=== PATIENT | male | born 1950 | race Caucasian/White ===

== ENCOUNTER 2018-08-31 23:01 | Inpatient (IN) | payer OTHER ==
[~2018-08-31] VITALS: Ht 182.9 cm; Wt 75.4 kg
[2018-08-31 23:22] LABS: ABSOLUTE NEUTROPHILS 9.5 thou/uL (1.4-8.2); BASOPHILS 0.4 % (0.0-2.0); EOSINOPHILS 0.1 % (0.0-3.0); HEMOGLOBIN 15.1 gm/dL (14.0-18.0); LYMPHOCYTES 29.6 % (24.0-44.0); MCH 32.1 pg (26.0-34.0); MCHC 32.8 g/dL (28.0-37.0); MCV 97.9 fL (80.0-100.0); MONOCYTES 7.9 % (1.0-8.0); PLATELET COUNT 190 thou/uL (150-400); RDW 13.3 % (10.5-14.5); WBC 15.3 thou/uL (4.0-11.0)
[2018-08-31 23:30] LABS: CALCIUM 8.5 mg/dL (8.5-10.1); CREATININE 1.3 mg/dL (0.7-1.3); POTASSIUM 5.2 mmol/L (3.5-5.1)
[2018-08-31 23:39] LABS: TROPONIN-I 0.48 ng/mL (<0.06)
[2018-08-31 23:54] LABS: BE(vivo) -11.2 mmol/L (-2 to +3); HCO3 18.7 mmol/L (22.0-26.0); PCO2 57.5 mmHg (35.0-45.0); PO2 299.4 mmHg (80.0-100.0); sO2 99.5 % (92.0-98.0)
[2018-08-31 23:55] LABS: pH 7.129 (7.360-7.450)
--- NOTE | 2018-08-31 23:56 | NUR ---
CRITICAL VALUE OF LACTIC ACID=8.6
--- NOTE | 2018-08-31 23:57 | NUR ---
PHYSICIAN NOTIFIED OF LACTIC=8.6
[2018-09-01] VITALS (94 sets, daily range): BP systolic 67–173; BP diastolic 39–145
--- NOTE | 2018-09-01 00:31 | NUR ---
attempted to reach patient's brother. message left
--- NOTE | 2018-09-01 01:45 | NUR ---
Pt arrived ICU via cart,accompanied with ER staff/RT to room 240. He is intubated and very restless. Nitro gtt was infusing as high as 100mcg at upon arrival. Stop it for now due to low BP. ST on monitor with some PVCs notes. No family present at this time. Hx obtained from old medical record. Care plans are initiates. Will continue to monitor him closely.
[2018-09-01 02:29] LABS: BE(vivo) -9.4 mmol/L (-2 to +3); HCO3 18.9 mmol/L (22.0-26.0); PCO2 50.4 mmHg (35.0-45.0); PO2 320.1 mmHg (80.0-100.0); sO2 99.6 % (92.0-98.0)
[2018-09-01 02:30] LABS: pH 7.193 (7.360-7.450)
--- NOTE | 2018-09-01 02:50 | NUR ---
CALLED BACK. NO NEW ORDER FOR VENT ADJUSTMENT AT THIS TIME. ORDER TO OBTAIN ABG LATER ON THIS AM.
--- NOTE | 2018-09-01 03:56 | NUR ---
After I placed warm blankets on this pt. I still not able to obtain pedalist pulses. He still able to move his foot and toes with palpations. no changes of color. Call placed to NATALYA Alfaro . no new order at this time.
[2018-09-01 04:57] LABS: BE(vivo) -6.2 mmol/L (-2 to +3); HCO3 20.2 mmol/L (22.0-26.0); PCO2 42.9 mmHg (35.0-45.0); PO2 99.6 mmHg (80.0-100.0); sO2 96.9 % (92.0-98.0)
[2018-09-01 05:23] LABS: HEMATOCRIT 45.6 % (42.0-52.0); HEMOGLOBIN 15.3 gm/dL (14.0-18.0); MCH 31.8 pg (26.0-34.0); MCHC 33.5 g/dL (28.0-37.0); MCV 95.1 fL (80.0-100.0); RBC 4.8 mil/uL (4.50-6.00); RDW 12.9 % (10.5-14.5); WBC 17.9 thou/uL (4.0-11.0)
[2018-09-01 05:41] LABS: CALCIUM 8.3 mg/dL (8.5-10.1); CREATININE 1.4 mg/dL (0.7-1.3)
[2018-09-01 05:49] LABS: POTASSIUM 3.4 mmol/L (3.5-5.1)
[2018-09-01 05:51] LABS: TROPONIN-I 37.18 ng/mL (<0.06)
--- NOTE | 2018-09-01 07:30 | NUR ---
Pt has multiple liquid stool notes. He required more pressor at this time. CXR show no evidence of acute CHF. Call placed to ; see new order.
[2018-09-01 10:35] LABS: ABSOLUTE NEUTROPHILS 18.1 thou/uL (1.4-8.2); BASOPHILS 0.4 % (0.0-2.0); HEMATOCRIT 43.8 % (42.0-52.0); HEMOGLOBIN 14.9 gm/dL (14.0-18.0); LYMPHOCYTES 3.4 % (24.0-44.0); MCHC 33.9 g/dL (28.0-37.0); MCV 94.1 fL (80.0-100.0); MONOCYTES 3.6 % (1.0-8.0); PLATELET COUNT 151 thou/uL (150-400); POLYS 92.6 % (36.0-66.0); RBC 4.65 mil/uL (4.50-6.00); RDW 12.8 % (10.5-14.5); WBC 19.6 thou/uL (4.0-11.0)
[2018-09-01 10:43] LABS: CREATININE 1.6 mg/dL (0.7-1.3); POTASSIUM 3.6 mmol/L (3.5-5.1)
--- NOTE | 2018-09-01 10:45 | 2DMMODE ---
[facility] [place] [address] 2 D/M-MODE ECHOCARDIOGRAM Name: ANGELICA PARIS Room #: 240-P ADM IN ..#: [id number] ������������� Admission: 09/01/18 ������������� Attend Phys: Juan Francisco Herbert MD Discharge: ��� ������������� ��� Date of : 54 Date of Service: 09/01/18 1045 �� Report #: [id number] �������� ��������������������������������������������[id number] THIS REPORT FOR: //name// APPROVED REPORT Study performed: 09/01/2018 09:45:50 EXAM: Comprehensive 2D, Doppler, and color-flow Echocardiogram Patient Location: ICU Room #: 240 Status: routine BSA: 1.92 HR: 116 bpm BP: 98/65 mmHg Rhythm: Tachycardia Other Information Study Quality: Adequate/patient on vent. Indications [place], respiratory arrest. Hx: COPD, HTN, HLP, ETOH abuse. 2D Dimensions RVDd: 34.26 mm IVSd: 11.58 (7-11mm) LVOT Diam: 20.99 (18-24mm) LVDd: 40.11 mm PWd: 10.76 (7-11mm) Ascending Ao: 33.40 (22-36mm) LVDs: 29.77 (25-40mm) Aortic Root: 36.02 mm Volumes Left Atrial Volume (Systole) Single Plane 4CH: 33.60 mL Single Plane 2CH: 35.33 mL LA ESV Index: 20.00 mL/m2 Aortic Valve AoV Peak Jermaine.: 1.41 m/s AO Peak Gr.: 7.96 mmHg LVOT Max P.37 mmHg LVOT Max V: 1.16 m/s ROSAMARIA Vmax: 2.84 cm2 Mitral Valve E/A Ratio: 0.8 MV Decel. Time: 184.88 ms MV E Max Jermaine.: 0.64 m/s [facility] [place] [address] 2 D/M-MODE ECHOCARDIOGRAM Name: ANGELICA PARIS Room #: [facility] IN M.R.#: [id number] ������������� Admission: 09/01/18 ������������� Attend Phys: Juan Francisco Herbert MD Discharge: ��� ������������� ��� Date of : 54 Date of Service: 09/01/18 1045 �� Report #: [id number] �������� ��������������������������������������������[id number] MV A Jermaine.: 0.77 m/s MV PHT: 53.61 ms IVRT: 50.75 ms Pulmonary Valve PV Peak Jermaine.: 0.74 m/s PV Peak Gr.: 2.19 mmHg Pulmonary Vein P Vein S: 0.56 m/s P Vein D: 0.38 m/s P Vein S/D Ratio: 1.47 Tricuspid Valve TR Peak Jermaine.: 3.06 m/s RAP Estimate: 5.00 mmHg TR Peak Gr.: 37.42 mmHg PA Pressure: 42.00 mmHg Left Ventricle The left ventricle is normal size. Regional wall motion abnormalities are noted. There is hypokinesis of the mid to distal anteroseptal and apical levin. Mild basal septal hypertrophy is present. Left ventricular systolic function is moderately decreased. LVEF is 35-40%. Mild diastolic dysfunction is present (impaired relaxation pattern). Right Ventricle The right ventricle is normal size. Atria The left atrium size is normal. The right atrium size is normal. Aortic Valve Aortic valve is trileaflet, mildly thickened. No aortic regurgitation is present. There is no aortic valvular stenosis. Mitral Valve Mitral valve leaflets are mildly thickened. There is no mitral valve regurgitation noted. No evidence of mitral valve stenosis. Tricuspid Valve The tricuspid valve is normal in structure. Mild to moderate tricuspid regurgitation. Estimated PAP is 45mmHg. Pulmonic Valve The pulmonary valve is normal in structure. Trace pulmonic [address] [address] 2 D/M-MODE ECHOCARDIOGRAM Name: ANGELICA PARIS Room #: 240-P [facility] IN ..#: [id number] ������������� Admission: 09/01/18 ������������� Attend Phys: Juan Francisco Herbert MD Discharge: ��� ������������� ��� Date of : 54 Date of Service: 09/01/18 1045 �� Report #: [id number] �������� ��������������������������������������������[id number] regurgitation. Great Vessels The aortic root is normal in size. The ascending aorta is normal in size. IVC is normal in size and collapses >50% with inspiration. Pericardium There is no pericardial effusion. <Conclusion> The left ventricle is normal size. Left ventricular systolic function is moderately decreased. Mild diastolic dysfunction is present (impaired relaxation pattern). The right ventricle is normal size. The left atrium size is normal. The right atrium size is normal. Aortic valve is trileaflet, mildly thickened. There is no mitral valve regurgitation noted. Mild to moderate tricuspid regurgitation. Estimated PAP is 45mmHg. ��������������������������������������������� <ELECTRONICALLY SIGNED> ���������������������������������������� By: Luis Urena MD ��������������������������������������������� 09/01/18 1045 1045 1045 Luis Urena MD /INF
[2018-09-01 10:49] LABS: ALBUMIN 2.9 g/dL (3.4-5.0); TOTAL BILIRUBIN 0.3 mg/dL (<0.1-1.0); TOTAL PROTEIN 6.5 g/dL (6.4-8.2)
[2018-09-01 10:53] LABS: FIBRINOGEN 419.7 mg/dL (210-360); INR 1.1; PROTIME 11.8 Seconds (9.3-11.4)
[2018-09-01 12:03] LABS: BE(vivo) -7.4 mmol/L (-2 to +3); PCO2 41.9 mmHg (35.0-45.0); PO2 114.4 mmHg (80.0-100.0); sO2 97.7 % (92.0-98.0)
--- NOTE | 2018-09-01 12:04 | EKG ---
[place] [address] [facility] [address] [employer] [place] [address] ELECTROCARDIOGRAM REPORT Name: ANGELICA PARIS Room #: 240-P ADM IN M.R.#: [id number] ������������������ Admission: 09/01/18 ������������������ Attend Phys: Juan Francisco Herbert MD Discharge: ������������������ Date of : 54 Report #: [id number] ����������������������������������������������������������������� [id number] THIS REPORT FOR: //name// [facility] ED Test Date: 2018-08-31 Test Time: 23:30:56 Pat Name: ANGELICA PARIS Department: Room: 240 Gender: M Assistant Plant Manager: morris : 1950 Requested By: Robert Torres Order Number: [id number] MD: Luigi Lemos Measurements Intervals [place] Rate: 109 P: 76 WV: 169 QRS: -58 QRSD: 97 T: 95 QT: 321 QTc: 433 Interpretive Statements Sinus tachycardia Biatrial enlargement Left axis deviation Probable lateral infarct, age indeterminate Anterior infarct, possibly acute clinical correlation suggested Baseline wander and artifact noted No previous ECG available for comparison Electronically Signed On 09-01-2018 12:04:17 FINISH MENDER by Luigi Lemos [email or web address] ��������������������������������������������� <ELECTRONICALLY SIGNED> ���������������������������������������� By: Luigi Lemos MD ��������������������������������������������� 09/01/18 1204 233 29 Luigi Lemos MD /EPI
[2018-09-01 12:05] LABS: pH 7.275 (7.360-7.450)
--- NOTE | 2018-09-01 12:10 | EKG ---
[address] [address] ELECTROCARDIOGRAM REPORT Name: GERMAIN PARISRICK Room #: 240-P ADM IN M.R.#: [id number] ������������������ Admission: 09/01/18 ������������������ Attend Phys: Juan Francisco Herbert MD Discharge: ������������������ Date of : 54 Report #: [id number] ����������������������������������������������������������������� [id number] THIS REPORT FOR: //name// [facility] Test Date: 2018-09-01 Test Time: 06:26:46 Pat Name: ANGELICA PARIS Department: Room: 240 P Gender: M Psychological Aide: ALICIA : 1950 Requested By: Carmelo Plunkett Order Number: [id number] MD: Luigi Lemos Measurements Intervals [place] Rate: 103 P: 71 SD: 131 QRS: -70 QRSD: 97 T: 91 QT: 346 QTc: 453 Interpretive Statements Sinus tachycardia Atrial premature complex Right atrial enlargement Left axis deviation Anterolateral infarct, age indeterminate may be recent Baseline wander in lead(s) V5 Electronically Signed On 09-01-2018 12:10:45 SEA KAYAKING GUIDE by uLigi Lemos [email or web address] ��������������������������������������������� <ELECTRONICALLY SIGNED> ���������������������������������������� By: Luigi Lemos MD ��������������������������������������������� 09/01/18 1210 5 5 Luigi Lemos MD /EPI
--- NOTE | 2018-09-01 12:11 | EKG ---
[address] [address] ELECTROCARDIOGRAM REPORT Name: GERMAIN PARISRICK Room #: 240-P ADM IN M.R.#: [id number] ������������������ Admission: 09/01/18 ������������������ Attend Phys: Juan Francisco Herbert MD Discharge: ������������������ Date of : 54 Report #: [id number] ����������������������������������������������������������������� [id number] THIS REPORT FOR: //name// [facility] Test Date: 2018-09-01 Test Time: 06:31:57 Pat Name: ANGELICA PARIS Department: Room: 240 P Gender: M Accounts Collector: ALICIA : 1950 Requested By: Carmelo Plunkett Order Number: [id number] MD: Luigi Lemos Measurements Intervals Lane Rate: 103 P: 73 RI: 129 QRS: -71 QRSD: 97 T: 91 QT: 393 QTc: 515 Interpretive Statements Sinus tachycardia Right atrial enlargement Left axis deviation Anterolateral infarct may be recent or acute correlation suggested Electronically Signed On 09-01-2018 12:11:45 AGRICULTURAL COMMODITIES GRADER by Luigi Lemos [email or web address] ��������������������������������������������� <ELECTRONICALLY SIGNED> ���������������������������������������� By: Luigi Lemos MD ��������������������������������������������� 09/01/18 1211 0631 06 Luigi Lemos MD /JAMAR
[2018-09-01 13:11] LABS: URINE BILIRUBIN NEGATIVE (Negative); URINE BLOOD 1+ (Negative); URINE CLARITY CLEAR; URINE COLOR YELLOW; URINE GLUCOSE-RANDOM* NEGATIVE (Negative); URINE KETONES NEGATIVE (Negative); URINE LEUKOCYTES-REFLEX 1+ (Negative); URINE NITRITE-REFLEX NEGATIVE (Negative); URINE PROTEIN (DIPSTICK) NEGATIVE (Negative); URINE SPECIFIC GRAVITY <= 1.005 (1.005-1.035); URINE UROBILINOGEN 0.2 E.U./dl (0.2-1.0)
[2018-09-01 13:19] LABS: BACTERIA-REFLEX None Seen /HPF (None Seen); CASTS None Seen /LPF (None Seen); CRYSTALS None Seen /LPF (None Seen); MUCUS 4-6 Moderate strn/LPF (None Seen); SQUAMOUS None Seen /LPF (0-3); URINE RBC 3-10 Few /HPF (0-2); URINE WBC-REFLEX 0-5 Rare /HPF (0-5)
[2018-09-01] MEDS ORDERED: LIPITOR 10 MG10 M1 PO (13:33)
[2018-09-01] MEDS ORDERED: CYMBALTA60 MG PO (13:34)
[2018-09-01] MEDS ORDERED: LOPRESSOR25 PO (13:34)
[2018-09-01] MEDS ORDERED: CLARITIN10 MG PO (13:34)
[2018-09-01] MEDS ORDERED: LISINOPRIL10 MG PO (13:34)
[2018-09-01] MEDS ORDERED: NORCO 7.5-3251 EACH PO (13:35)
[2018-09-01] MEDS ORDERED: MELATONIN3 MG PO (13:37)
[2018-09-01] MEDS ORDERED: IPRAT-ALBUT 0.5-3 ML INH (13:38)
[2018-09-01] MEDS ORDERED: COLACE 100 MG100 MG PO (13:39)
[2018-09-01] MEDS ORDERED: [UNRECOGNIZED DRUG - OTHER] TOP (13:39)
[2018-09-01] MEDS ORDERED: NITROGLYCERIN0.4 MG SUBLING (13:40)
[2018-09-01] MEDS ORDERED: VENTOLIN HFA 1818 GM INH (13:40)
--- NOTE | 2018-09-01 15:47 | NUR ---
NURSING NOTE---- SPOKE WITH PATIENT BROTHER JAMEY VIA TELEPHONE, REPORTS THAT PTS BASELINE IS ALERT TO SELF, WHEELCHAIR BOUND, SEVERE DEMENTIA WHOM IS VERBALLY AND PHYSICALLY AGGRESSIVE AND WILL HIT ANYONE WITHIN ARMS REACH. UPDATED BROTHER ABOUT PT STATUS, BROTHER DOES NOT WANT PT TO BE CARDIAC CATHED, WISHES TO HAVE HIM REMAIN DNR STATUS. REPORTS THAT PT [facility] 3 YEARS DUE TO A PAST CVA WHICH LEFT HIM WHEELCHAIR BOUND. UPDATED ROUNDING PHYSICIANS REGARDING BROTHERS WISHES (MILKA COSTELLO, GERARDO) TRANG WAS GOING TO TOUCH BASE WITH BROTHER TODAY AND UPDATE HIM ON PT PROGNOSIS.
--- NOTE | 2018-09-01 17:01 | NUR ---
CM ASSESSMENT: CASE OPENED FOR DC PLANNING. CLINICAL INFO REVIEWED. PT LIVES IN LTC AT [facility]. NEED ADL ASSIST AND WALKS WITH WALKER AND BEHIND W/C SOME. HX OF DEMENTIA WITH AGGRESSIVE BEHAVIORS. ON VENT FIO2 DOWN FORM 80 % TO 40 % AND ON 10 OF PEEP, LEVOPHED GTT. PT'S BROTHER JAMEY IS DPOA AND AWARE OF ADMISSION. PT IS DNR. ADMISSIONS AT [facility] UPDATED.
[2018-09-01 17:14] LABS: CALCIUM 6.2 mg/dL (8.5-10.1); CREATININE 1.4 mg/dL (0.7-1.3); POTASSIUM 3.4 mmol/L (3.5-5.1)
--- NOTE | 2018-09-01 18:03 | NUR ---
SPOKE WITH DR JARQUIN REGARDING PT CVP 4-6, ORDERS FOR 1/2 NS @ 125ML/HR, ALSO REPORTED FLUID INTAKE AND OUTPUT. SEE CHARTING.
[2018-09-02] VITALS (95 sets, daily range): BP systolic 77–159; BP diastolic 47–94
[2018-09-02 04:35] LABS: ABSOLUTE NEUTROPHILS 14.6 thou/uL (1.4-8.2); BASOPHILS 0.2 % (0.0-2.0); HEMATOCRIT 40.3 % (42.0-52.0); LYMPHOCYTES 3.8 % (24.0-44.0); MCH 30.8 pg (26.0-34.0); MCHC 32.2 g/dL (28.0-37.0); MCV 95.6 fL (80.0-100.0); MONOCYTES 4.3 % (1.0-8.0); PLATELET COUNT 142 thou/uL (150-400); POLYS 91.7 % (36.0-66.0); RBC 4.22 mil/uL (4.50-6.00); RDW 13.4 % (10.5-14.5)
[2018-09-02 05:02] LABS: CALCIUM 7.9 mg/dL (8.5-10.1); CREATININE 1.4 mg/dL (0.7-1.3); POTASSIUM 4.1 mmol/L (3.5-5.1)
[2018-09-02 05:06] LABS: TROPONIN-I 8.58 ng/mL (<0.06)
[2018-09-02 05:08] LABS: BE(vivo) -9.6 mmol/L (-2 to +3); HCO3 17.6 mmol/L (22.0-26.0); PCO2 42.8 mmHg (35.0-45.0); sO2 98.2 % (92.0-98.0)
[2018-09-02 05:09] LABS: pH 7.231 (7.360-7.450)
--- NOTE | 2018-09-02 06:00 | NUR ---
Pt remains stable in this shift. Continue to be on vent with low dose of Propofol and Fentanyl gtt for vent management. He has short run of SVT tonight but back to NSR/ST w/o any intervention. VSS. All lines remains inplaced. Slowly progressing toward goals.
[2018-09-02 14:05] LABS: HCO3 18.3 mmol/L (22.0-26.0); PCO2 36.1 mmHg (35.0-45.0); PO2 135.4 mmHg (80.0-100.0); pH 7.322 (7.360-7.450); sO2 98.5 % (92.0-98.0)
[2018-09-02 15:20] LABS: CALCIUM 8.1 mg/dL (8.5-10.1); CREATININE 1.4 mg/dL (0.7-1.3); POTASSIUM 4.1 mmol/L (3.5-5.1)
--- NOTE | 2018-09-02 18:35 | HC ---
[facility] [place] [address] CONSULTATION Name: ANGELICA PARIS Room #: 240-P ADM IN M.R.#: [id number] Admission: 09/01/18 ������������������ Attend Phys: Juan Francisco Herbert MD Discharge: ������������������ Date of : 54 Report #: [id number] THIS REPORT FOR: //name// CC: Usman Herbert DATE OF SERVICE: 09/01/2018 REFERRAL PHYSICIAN: Dr. Carrasquillo. REASON FOR REFERRAL: Acute respiratory failure. HISTORY OF PRESENT ILLNESS: The patient is a 68-year-old white male who was brought to the Emergency Room from a shelter. He was found in respiratory distress and eventually intubated. A pulmonary consultation was requested. This is patient's first admission to this hospital. Medical history is limited. There is a DPOA, a brother who is not present. EMS was called to the shelter and patient was found to be in respiratory distress. Onset of the symptoms was unknown. When he was taken to the ER, he was found to be in more distress, hypoxic. The patient was subsequently intubated when he arrived in the ER. He was intubated with a 7.5 mm ET tube orally. Following intubation, the EMS had brought paperwork. It appeared that patient was a DNR. According to records, attempts were made to call the patient's brother, who is the next of kin. They were unsuccessful. Initial EKG as read by the ED physician was felt to be unremarkable except for T-wave inversion. After review with Cardiology, there were ST elevation noted on the first EKG. Admitting chest x-ray shows mild interstitial infiltrates seen in the right lower lung field. ET tube is in appropriate position above the sri. The patient was then transferred to the ICU. He was placed on nitro drip. When he arrived in ICU, he was hypotensive. Nitro drip was discontinued. Levophed was initiated. At present, patient is sedated, unresponsive. PAST MEDICAL HISTORY: Per records is notable for dementia, COPD, hypertension, gastroesophageal reflux disease along with history of alcohol dependence. PAST SURGICAL HISTORY: Unknown. [facility] [address] [place] [address] CONSULTATION Name: ANGELICA PARIS Room #: 240-P ADM IN .R.#: [id number] Admission: 09/01/18 ������������������ Attend Phys: Juan Francisco Herbert MD Discharge: ������������������ Date of : [birth year] Report #: [id number] ALLERGIES: No known to medications according to records. HOME MEDICATIONS: Unknown at this time. FAMILY HISTORY AND SOCIAL HISTORY: Unknown other than patient resides in a shelter. He does have a brother who lives in town, who is apparently the DPOA, being next of kin. REVIEW OF SYSTEMS: Deferred as the patient is intubated. PHYSICAL EXAMINATION: GENERAL: He is sedated. VITAL SIGNS: Temperature is 99.9 degrees Fahrenheit, respiratory rate is 22, blood pressure is 100/65 mmHg, saturation 100%, pulse is 100 beats per minute. Blood pressure had been as low as 68 mmHg systolic. HEENT: Normocephalic, atraumatic. He is orally intubated. NECK: Supple, without lymphadenopathy or thyromegaly. CHEST: Breath sounds are fair. Mild coarse breath sounds in the bases, more on the right base. No obvious wheezes. CARDIOVASCULAR: Normal S1, S2. No murmurs or gallop. There is no JVD. There is no carotid bruit. Pulses are 2+/4+ bilaterally. ABDOMEN: Soft, nontender. No organomegaly or masses felt. GENITOURINARY: Deferred. RECTAL: Deferred. EXTREMITIES: No cyanosis or clubbing. Mild cyanosis seen in the foot. Otherwise, no clubbing, no edema. NEUROLOGIC: Deferred as the patient is sedated at this time. LABORATORY DATA: Chest x-ray shows volume loss in the left lung field with atelectasis, pleural thickening. Mild infiltrates as seen in the right upper lobe, right lower lobe. Chronic changes are also noted including probable bronchiectasis involving the right lower lobe. ET tube is approximately 2.5 cm above the sri. A skin fold sign is noted in the right upper lobe. Lactic acid is 8.6. BNP is 1500. Procalcitonin level is 41. 2D echocardiogram shows normal LV size, LV function is moderately decreased, right ventricle is normal size, no valvular abnormalities. Pulmonary pressure is 45. Sodium 137, potassium 5.2, chloride 98, CO2 is 24, BUN is 17, creatinine is 1.3. Liver enzymes are elevated. WBC is 19,600 without significant bandemia. Albumin 2.9. Initial arterial blood gas revealed pH 7.12, pCO2 57, pO2 299 on FiO2 100%. IMPRESSION: 1. Acute hypercapnic-hypoxic respiratory failure in this 68-year-old white male. He has a history of chronic obstructive pulmonary disease, dementia and alcohol dependence. His procalcitonin is markedly elevated. He has leukocytosis. His troponin is also markedly elevated with an abnormal EKG. [facility] [address] [place] [address] CONSULTATION Name: ANGELICA PARIS Room #: 240-P [facility] IN M.R.#: [id number] Admission: 09/01/18 ������������������ Attend Phys: Juan Francisco Herbert MD Discharge: ������������������ Date of : 54 Report #: [id number] Etiology probably related to exacerbation of chronic obstructive pulmonary disease, pneumonia. Severe sepsis is present. 2. Abnormal EKG with ST elevation, markedly elevated troponin, suspect acute myocardial ischemia. 3. Acute hypercapnic-hypoxic respiratory failure due to above. 4. Chronic obstructive pulmonary disease, severity unknown with exacerbation. 5. Renal insufficiency, likely acute kidney injury due to severe sepsis, hypotension leading to acute tubular necrosis. 6. Probable shock liver. 7. Acidosis, mixed respiratory and metabolic, with lactic acidosis. 8. History of vascular dementia. 9. Depression. 10. Hypotension. 11. History of alcohol dependence. May need to address possible withdrawal symptoms. 12. Gastroesophageal reflux disease. 13. Medical directive. Apparently, the patient had a DNR status. Unfortunately, this information was not known until after the patient was intubated. The patient's brother had been contacted. For now, we will continue treatment, but no CPR or cardioversion. RECOMMENDATIONS: Would recommend initiating sepsis protocol, continue mechanical ventilation, wean O2 for saturation 90%. We will need to monitor urine output closely given acute kidney injury along with following electrolytes closely. Acidosis has corrected partially with adequate ventilation. May need bicarbonate if metabolic acidosis continues. We will defer management of his acute myocardial ischemia to Cardiology. DVT and GI prophylaxis is recommended. Nutritional support once the patient is more stable. Thank you for this consultation. ��������������������������������������������� <ELECTRONICALLY SIGNED> ���������������������������������������� By: Carmelo Plunkett MD ��������������������������������������������� 09/02/18 1835 1139 6 Carmelo Plunkett MD /issa
--- NOTE | 2018-09-02 19:14 | NUR ---
ASSUMED CARE OF PT. AT 0700. SEDATED AND INTUBATED, CAN OCCANSIONALLY FOLLOW VOICE COMMANDS TO SQUEEZE NURSE HANDS. PROPOFOL TITRATED FROM 10-15, LEVOPHED TITRATED FROM 5-3, SODIUM BICARBONATE STARTED AT 50 ML/HR, JEVITY 1.5 STARTED AT 20 ML/HR, FENTANYL STILL RUNNING AT 50. PT. REMAINS NSR AND NO EDEMA. BREATH SOUNDS CLEAR TO AUSCULTATION, VENTILATION SETTINGS CHANGED TO PEEP 8. URINARY OUTPUT REMAINS WITHIN NORMAL LIMITS. AWAITING TO HEAR FROM BROTHER FOR FUTURE PLAN OF CARE. WILL CONTINUE TO MONITOR.
[2018-09-03] VITALS (52 sets, daily range): BP systolic 87–172; BP diastolic 49–96
[2018-09-03 05:16] LABS: ABSOLUTE NEUTROPHILS 13.6 thou/uL (1.4-8.2); BASOPHILS 0.3 % (0.0-2.0); HEMATOCRIT 36.6 % (42.0-52.0); HEMOGLOBIN 12.4 gm/dL (14.0-18.0); LYMPHOCYTES 3.8 % (24.0-44.0); MCH 31.8 pg (26.0-34.0); MCHC 33.9 g/dL (28.0-37.0); MCV 93.7 fL (80.0-100.0); PLATELET COUNT 128 thou/uL (150-400); POLYS 89.9 % (36.0-66.0); RDW 13.2 % (10.5-14.5); WBC 15.1 thou/uL (4.0-11.0)
[2018-09-03 05:17] LABS: PCO2 42.5 mmHg (35.0-45.0); PO2 104.3 mmHg (80.0-100.0); pH 7.312 (7.360-7.450); sO2 97.3 % (92.0-98.0)
[2018-09-03 05:19] LABS: CALCIUM 8.1 mg/dL (8.5-10.1); CREATININE 1.2 mg/dL (0.7-1.3); POTASSIUM 3.7 mmol/L (3.5-5.1)
--- NOTE | 2018-09-03 08:32 | NUR ---
ASSUMED CARE OF PT AT 0100, PT ON THE VENT,LIGHTLY SEDATED ON PROPOFOL AND FENTANYL. TURNED LEVOPHED OFF AT 0520 WHEN PT HAD A SUDDEN ONSET OF AFIB AND HIGH BLOOD PRESSURE, HEART WAS RAPID 170'S TO 200'S AND SYSTOLIC BP IN THE 170'S AMIODARONE BOLUS AND DRIP WAS INATIATED PER DR GAGNON' ORDERS, HR AND BP SLOWLY STARTED TRENDING DOWN. PT OPENS EYES TO STIMULI, AND MOVES HIS HANDS, DOES NOT FOLLOW COMMANDS. TUBE FEEDING INFUSING AT 20ML, RESIDUAL 50CC THIS MORNING, RECTAL TUBE IN PLACE, SMALL AMOUNTS OF LIQUID STOOL, ALARCON WITH CLOUDY URINE WITH SEDIMENT, 500ML OVERNIGHT.
[2018-09-03 11:01] LABS: CALCIUM 8.5 mg/dL (8.5-10.1); CREATININE 1.2 mg/dL (0.7-1.3); POTASSIUM 3.7 mmol/L (3.5-5.1)
--- NOTE | 2018-09-03 18:14 | NUR ---
SHIFT SUMMARY: STABLE ON THE VENT LIGHTLY SEDATED. ON AMIO GTTPER PROTOCOL. VITALS STABLE. NO WEANING AT THIS TIME. FUBEFEEDING PER OGT AND RATE INCREASED EARLIER TODAY, HOWEVER, NOT AT GOAL YET. ALARCON WITH ADEQUATE OUTPUT. FMS WITH LIQUID STOOL. NO FAMILY AT THE BEDSIDE OR PHONE CALLS. WILL CONTINUE WITH POC.
[2018-09-04] VITALS (48 sets, daily range): BP systolic 95–226; BP diastolic 54–142
[2018-09-04 04:24] LABS: HEMATOCRIT 33.9 % (42.0-52.0); HEMOGLOBIN 11.6 gm/dL (14.0-18.0); MCH 32.4 pg (26.0-34.0); MCHC 34.2 g/dL (28.0-37.0); MCV 94.5 fL (80.0-100.0); RBC 3.58 mil/uL (4.50-6.00); RDW 13.3 % (10.5-14.5)
[2018-09-04 04:45] LABS: CALCIUM 8.3 mg/dL (8.5-10.1); CREATININE 1.1 mg/dL (0.7-1.3); POTASSIUM 3.9 mmol/L (3.5-5.1)
[2018-09-04 05:33] LABS: BE(vivo) -2.7 mmol/L (-2 to +3); HCO3 22.4 mmol/L (22.0-26.0); PCO2 39.8 mmHg (35.0-45.0); PO2 83.5 mmHg (80.0-100.0); pH 7.368 (7.360-7.450)
--- NOTE | 2018-09-04 08:17 | HC ---
[facility] [address] CONSULTATION Name: ANGELICA PARIS Room #: 240-P ADM IN M.R.#: [id number] Admission: 09/01/18 ������������������ Attend Phys: Juan Francisco Herbert MD Discharge: ������������������ Date of : 54 Report #: [id number] THIS REPORT FOR: //name// CC: Usman Herbert DATE OF SERVICE: 09/01/2018 INDICATION: Positive troponin. HISTORY OF PRESENT ILLNESS: This is a 68-year-old gentleman who was transferred from [facility] for rehabilitation for respiratory distress. He is presently intubated and has a history of dementia. Information is obtained from the records from his institution and a brother. He has a history of COPD, hypertension, advanced dementia, hyperlipidemia and depression. He apparently was found to be in respiratory distress, unsure of the onset. He was brought to the hospital with no improvement with breathing treatments and CPAP. He was intubated in the ER. After he was intubated, information was obtained including a DNR status. This was verified by his brother. PAST MEDICAL HISTORY: Hypertension, COPD, dementia, hyperlipidemia. ALLERGIES: None. MEDICATIONS: Include Lipitor 10 mg, Cymbalta, lisinopril 10 mg, metoprolol 25, and [place]. SOCIAL HISTORY: Unobtainable. FAMILY HISTORY: Unobtainable. REVIEW OF SYSTEMS: Unobtainable. PHYSICAL EXAMINATION: VITAL SIGNS: Blood pressure is 102/60, heart rate is 80 beats. GENERAL: The patient is intubated, unresponsive. HEENT: Normocephalic, atraumatic. NECK: No JVD. LUNGS: Diminished breath sounds at the bases. CARDIAC: Regular rate and rhythm, S1, S2 positive. ABDOMEN: Soft, nontender. EXTREMITIES: No cyanosis, no edema. ECG reveals sinus rhythm, Q waves in V2 with ST elevation, anteroseptal ID, left axis deviation. [facility] [address] [place] [address] CONSULTATION Name: ANGELICA PARIS Room #: 240-P [facility] IN [facility].#: [id number] Admission: 09/01/18 ������������������ Attend Phys: Juan Francisco Herbert MD Discharge: ������������������ Date of : 54 Report #: [id number] LABORATORY VALUES: Peak troponin is 37.8, white count is 15.3, hemoglobin 15.1, creatinine is 1.4. ASSESSMENT AND PLAN: 1. Respiratory failure, the etiology is multifactorial, chest x-ray shows infiltrate consistent with pneumonia. Would rule out aspiration pneumonia. He is presently hypotensive, may be due to septic shock. Panculture and start antibiotics. 2. Myocardial infarction, unclear the onset, may be related to oxygen mismatch. Given his comorbid conditions and DNR status, would pursue a strategy of conservative therapy. Can give aspirin and atorvastatin through the NG tube. No other cardiac medications in view of hypotension. 3. Hypotension, presently on Levophed for hemodynamic support. We will obtain an echocardiogram at this time. As above, consider ruling an infectious process. 4. Hypertension, hold medications. 5. Dementia, DNR status. ��������������������������������������������� <ELECTRONICALLY SIGNED> ���������������������������������������� By: Luis Urena MD ��������������������������������������������� 09/04/18 0817 0919 [id number] Luis Urena MD /nt
[2018-09-04 10:02] LABS: BE(vivo) -2.5 mmol/L (-2 to +3); HCO3 22.4 mmol/L (22.0-26.0); PCO2 39.5 mmHg (35.0-45.0); PO2 81.8 mmHg (80.0-100.0); pH 7.372 (7.360-7.450); sO2 95.8 % (92.0-98.0)
[2018-09-05] VITALS (48 sets, daily range): BP systolic 76–180; BP diastolic 43–97
[2018-09-05 04:33] LABS: HEMATOCRIT 34.2 % (42.0-52.0); HEMOGLOBIN 11.5 gm/dL (14.0-18.0); MCH 31.7 pg (26.0-34.0); MCHC 33.6 g/dL (28.0-37.0); MCV 94.2 fL (80.0-100.0); RBC 3.63 mil/uL (4.50-6.00); RDW 13.5 % (10.5-14.5)
[2018-09-05 04:48] LABS: CREATININE 1.2 mg/dL (0.7-1.3); POTASSIUM 3.1 mmol/L (3.5-5.1)
--- NOTE | 2018-09-05 06:41 | NUR ---
Vented with no change in vent setting. Less frequent spontaneous eye opening upon painful stimuli than that during previous overnight stocker. Not following commands as during previous overnight stocker. On light sedation. VSS. No apparent distress noted. In restraints. Fall precautions maintained.
--- NOTE | 2018-09-05 13:25 | NUR ---
recommend new tube feeding goal of 60ml/hr.
--- NOTE | 2018-09-05 16:35 | NUR ---
0830 VENT UPDATE-- UNABLE TO CPAP TRIAL PT THIS MORNING, INCREASED HEART RATE, INCREASED B/P AND INCREASED WORK OF BREATHING. SONDRA AT BEDSIDE, ORDERS TO SWITCH SEDATION TO PRECIDEX. 1030 PRECIDEX GTT INCLUDING BOLUS STARTED, PROPOFOL OFF. 1200 PT APPEARS TO BE MORE COMFORTABLE ON PRECIDEX, VITAL SIGNS STABLE, WILL MONITOR CLOSELY.
[2018-09-06] VITALS (31 sets, daily range): BP systolic 132–165; BP diastolic 77–95
--- NOTE | 2018-09-06 03:17 | NUR ---
RECEIVED PATIENT ON PRECEDEX DRIP, OPEN EYES TO SITMULI, DOES NOT OBEYS COMMAND, PUPILS 2 MM SLUGGISHLY REACTIVE TO LIGHT, BILATERAL SOFT RESTRAINTS ON. SR ON THE MONITOR. PULSES 2+/1+. NON PITTING EDEMA ON BILATERAL HANDS, BILATERAL HANDS PLACED 0N TOP OF A PILLOW. ET 7.5 AT LEVEL 27 AT THE TEETH, ON AC MODE WITH RATE OF 18, TV 450, PEEP 5, FIO2 40%. LUNG SOUNDS CLEAR, SUCTIONED PER ET AND OREM, OBTAINED MINIMAL WHITISH SECRETIONS. OGT LEVEL 65 WITH ONGOING JEVITY 1.5 AT 50 ML/HOUR BUT 150 ML RESIDUAL AT 8 PM, HELD TUBE FEED AND WAS RESTARTED AT 25 ML/HOUR AT 12 MN (RESIDUAL 30 ML AT 12MN). ALARCON CATHETER DRAINING TO A YELLOWISH URINE OUTPUT. RECTAL TUBE INTACT AND IRRIGATED WITH 50 ML. SKIN INTACT. RIGHT IJ TRIPLE LUMEN WITH ONGOING PRECEDEX DRIP AT 1 mcg/kg/hr (20.3 ml/hour). TURNING Q 2 HOURS DONE, ORAL CARE DONE, ALARCON CATHETER CARE DONE. MAINTAINED ON HIGH FALL RISK PRECAUTION. BILATERAL SOFT RESTRAINT ON. FF UP POC.
[2018-09-06 03:23] LABS: CALCIUM 8.3 mg/dL (8.5-10.1); CREATININE 1.1 mg/dL (0.7-1.3); POTASSIUM 3.8 mmol/L (3.5-5.1)
[2018-09-06 04:30] LABS: HEMATOCRIT 36.9 % (42.0-52.0); HEMOGLOBIN 12.2 gm/dL (14.0-18.0); MCH 31.4 pg (26.0-34.0); MCHC 33.1 g/dL (28.0-37.0); RBC 3.88 mil/uL (4.50-6.00); RDW 13.2 % (10.5-14.5); WBC 8.6 thou/uL (4.0-11.0)
--- NOTE | 2018-09-06 17:14 | NUR ---
ASSUMED CARE OF PT AT 0700 THIS SHIFT. PT HAS BEEN SEDATED WITH PRECEDEX THIS SHIFT, PT DOES REACT TO HIS NAME SOMEWHAT, BUT DOES NOT FOLLOW COMMANDS. PT SEEMS AGITATED AT TIMES, OVERBREATHING THE VENT IN THE 30s, NO C-PAP THIS SHIFT. PT'S DEPRESSION MEDS WERE RESTARTED. PT CURRENTLY SEEMS TO BE RESTING COMFORTABLY IN ROOM. ASSESSMENTS ARE DOCUMENTED. PT HAS NOT HAD VISITORS THIS SHIFT, EDUCATION WAS PROVIDED. PLAN OF CARE IS TO CONTINUE TO MONITOR CLOSELY AT THIS TIME.
[2018-09-07] VITALS (24 sets, daily range): BP systolic 120–154; BP diastolic 56–89
--- NOTE | 2018-09-07 06:17 | NUR ---
No significant changes observed through the night. PRN ativan given for breakthrough restlessness with desired effect achieved. VS stable and SpO2 adequate on current vent settings. Continues to have large amount of TF residuals and TF infusing at low rate. Large amount of urine output for shift. Continue with POC.
[2018-09-07 12:10] LABS: URINE BILIRUBIN NEGATIVE (Negative); URINE BLOOD NEGATIVE (Negative); URINE CLARITY CLEAR; URINE COLOR YELLOW; URINE GLUCOSE-RANDOM* NEGATIVE (Negative); URINE KETONES NEGATIVE (Negative); URINE LEUKOCYTES-REFLEX NEGATIVE (Negative); URINE NITRITE-REFLEX NEGATIVE (Negative); URINE PROTEIN (DIPSTICK) 1+ (Negative); URINE UROBILINOGEN 0.2 E.U./dl (0.2-1.0)
[2018-09-07 12:29] LABS: BACTERIA-REFLEX 1-9 Few /HPF (None Seen); CASTS None Seen /LPF (None Seen); CRYSTALS None Seen /LPF (None Seen); SQUAMOUS None Seen /LPF (0-3); URINE RBC None Seen /HPF (0-2); URINE WBC-REFLEX 0-5 Rare /HPF (0-5)
[2018-09-07 12:34] LABS: BE(vivo) 6.5 mmol/L (-2 to +3); HCO3 29.9 mmol/L (22.0-26.0); PCO2 38.5 mmHg (35.0-45.0); PO2 100.9 mmHg (80.0-100.0); pH 7.508 (7.360-7.450); sO2 98.1 % (92.0-98.0)
[2018-09-07 13:24] LABS: HEMATOCRIT 35.9 % (42.0-52.0); HEMOGLOBIN 12.1 gm/dL (14.0-18.0); MCH 31.7 pg (26.0-34.0); MCHC 33.8 g/dL (28.0-37.0); MCV 93.7 fL (80.0-100.0); RBC 3.83 mil/uL (4.50-6.00); RDW 12.8 % (10.5-14.5); WBC 9.1 thou/uL (4.0-11.0)
[2018-09-07 13:30] LABS: CREATININE 1.1 mg/dL (0.7-1.3); MAGNESIUM 2.2 mg/dL (1.8-2.4); POTASSIUM 3.1 mmol/L (3.5-5.1)
--- NOTE | 2018-09-07 16:10 | NUR ---
ASSUMED CARE OF PT AT 0700 THIS SHIFT. PT HAS BEEN EXTUBATED THIS SHIFT, HOWEVER PT STILL DOES NOT FOLLOW COMMANDS, AT TIMES BECOMING AGITATED. PT IS STILL ON PRECEDEX FOR AGITATION, NO APPARENT PAIN. PT IS CURRENTLY RESTING COMFORTABLY IN ROOM. ASSESSMENTS ARE DOCUMENTED. PT HAS NOT HAD VISITORS THIS SHIFT, EDUCATION WAS PROVIDED. PLAN OF CARE IS TO CONTINUE TO MONITOR PT CLOSELY AT THIS TIME.
--- NOTE | 2018-09-07 16:38 | NUR ---
FOLLOWING FOR DC PLANNING. PT EXTUBATED TODAY, REMAINS SOMULENT. LIVES IN LTC FACILITY AND ADMISSIONS DEPT UPDATED. PT IS DNR. WILL FOLLOW TO ASSIST WITH COORDINATION OF DC PLAN.
[2018-09-08] VITALS (20 sets, daily range): BP systolic 93–142; BP diastolic 46–77
--- NOTE | 2018-09-08 03:26 | NUR ---
PT EXTUBATED YESTERDAY AFTERNOON. PT'S O2 SAT IS CURRENTLY 97% WITH 3L O2 PER NC. PT SEEMS TO HAVE SECRETIONS THAT NEED TO BE EXPELLED, BUT PT HAS A POOR COUGH AND IS UNABLE TO EXPELL MANY SECRETIONS. PT IS ON PRECEDEX GTT, AT A LOW RATE. PT HAS BEEN CALM AND AROUSABLE. PT FOLLOWS SOME SIMPLE COMMANDS; EXTREMITIES ARE VERY WEAK. OG TUBE WAS LEFT IN FOLLOWING EXTUBATION. THIS MIGHT NEED TO BE CHANGED TO A NG/DOBHOFF, IT IS LIKELY THAT THE OG TUBE WILL NOT MAINTAIN PROPER PLACEMENT NOW THAT THE PT IS EXTUBATED. WILL CONTINUE TO MONITOR.
[2018-09-08 06:05] LABS: HEMATOCRIT 34.6 % (42.0-52.0); HEMOGLOBIN 11.9 gm/dL (14.0-18.0); MCHC 34.3 g/dL (28.0-37.0); MCV 93.4 fL (80.0-100.0); RBC 3.71 mil/uL (4.50-6.00); RDW 12.9 % (10.5-14.5); WBC 10.9 thou/uL (4.0-11.0)
[2018-09-08 06:28] LABS: CALCIUM 7.9 mg/dL (8.5-10.1); POTASSIUM 3.3 mmol/L (3.5-5.1); TOTAL BILIRUBIN 0.7 mg/dL (<0.1-1.0); TOTAL PROTEIN 5.2 g/dL (6.4-8.2)
--- NOTE | 2018-09-08 09:18 | NUR ---
If tube feeds will restart, recommend dobhoff and change formula to Vital HN 1.2 goal of 60ml/hr.
--- NOTE | 2018-09-08 13:27 | NUR ---
FAXED CLINICAL UPDATE TO [facility] SPOKE WITH NICK IN ADM. SHE RECEIVED UPDATE AND NOTIFIED HER THAT NO WEEKEND DC. DCP TO FOLLOW.
--- NOTE | 2018-09-08 16:13 | NUR ---
1000 SPOKE WITH BROTHER JAMEY REGARDING ARTERIAL RUN-OFF, CONSENT OBTAINED. PT REMAINS AND CALM ON PRECEDEX, EARLENE CONSULTED FOR PSYCH STABIZATION, VITAL SIGNS STABLE, NO FEVERS. OPENS EYES TO VOICE AND WHISPERED HIS NAME (PAT). 1400 PT OFF UNIT FOR ARTERIAL RUN-OFF, PRECEDEX GTT SENT WITH IR STAFF.
--- NOTE | 2018-09-08 16:35 | HC ---
[facility] [place] [address] CONSULTATION Name: ANGELICA PARIS Room #: 240-P [facility] IN M.R.#: [id number] Admission: 09/01/18 ������������������ Attend Phys: Juan Francisco Herbert MD Discharge: ������������������ Date of : 54 Report #: [id number] THIS REPORT FOR: //name// CC: Usman Herbert DATE OF SERVICE: 09/07/2018 TYPE OF REPORT: Infectious diseases consultation. REASON FOR CONSULTATION: I was asked to evaluate concerning fever. HISTORY OF PRESENT ILLNESS: The patient is a 68-year-old [facility] resident with underlying history of dementia, hypertension and COPD; who presents with respiratory failure and pneumonia. No organisms have been identified. He was intubated the day of admission, 09/01/2018. He was extubated today. Today, he did develop a temperature of 102.6 degrees. Hemodynamically, he has been stable. He remains on oxygen per nasal cannula. He has a right IJ catheter in place. He has loose stools today now has a rectal tube in place. He has an indwelling Christy catheter with adequate urine output. He has an OG tube in place. Has not tolerated tube feedings at this point in time. He is also found to have lower extremity ischemia. Initially had evidence of cardiac ischemia and atrial fibrillation with rapid ventricular response. REVIEW OF SYSTEMS: The patient was unable to give any details for review of systems. Did discuss with nursing at the bedside. No further additions for 10-point review of systems. ALLERGIES: None known. MEDICATIONS: As noted on his MAR including vancomycin and Zosyn since his admission. FAMILY HISTORY: Noncontributory. SOCIAL HISTORY: Otherwise, not known. PAST MEDICAL HISTORY: Dementia, COPD, hypertension, gastroesophageal reflux and alcohol dependence. PHYSICAL EXAMINATION: VITAL SIGNS: He is afebrile and hemodynamically stable. GENERAL: He was awake but not communicative. HEENT: Eyes, without scleral icterus. Mouth with OG tube in place. No mucositis. He had dry mucous membranes. SKIN: Without rash or decubitus. No palpable adenopathy. [facility] [address] [place] [address] CONSULTATION Name: ANGELICA PARIS Room #: 240-P [facility] IN M.R.#: [id number] Admission: 09/01/18 ������������������ Attend Phys: Juan Francisco Herbert MD Discharge: ������������������ Date of : 54 Report #: [id number] LUNGS: Coarse in the left base posteriorly. HEART: Regular, without murmur, gallop or rub. ABDOMEN: Soft and did not appear tender. There is no hepatosplenomegaly or mass. GENITOURINARY: External genitalia unremarkable with no mass or lesion. Had indwelling Christy catheter. Perianal examination unremarkable with a rectal tube in place. He had soft loose stool surrounding the tube. EXTREMITIES: With cyanosis, both lower extremities below the knee. Feet were cold to touch. Could not palpate pulses in the feet. NEUROLOGICAL: Could not evaluate cranial nerves or neurologic examination further, the patient was not responding to commands. He did have cerebral ischemic vascular disease. LABORATORY STUDIES: Sodium 147, potassium 3.1, bicarbonate 34 and creatinine is 1.1. No liver function test today. Hemoglobin 12; platelet count 162,000 and white count 9.1. MRSA screen negative. C. difficile negative. Procalcitonin was 41 on admission. This is yet to be repeated. Blood cultures negative on admission, currently pending. Urinalysis unremarkable. IMPRESSION: 1. Respiratory failure just extubated with persistent left lung infiltrate, left lower lobe. 2. Fever. I am suspecting either pulmonary source versus line. Less likely intraabdominal. Does have ischemic insult to both lower extremities. 3. Cardiac ischemia. 4. Atrial fibrillation. 5. Dementia. RECOMMENDATIONS: We will obtain CMP, procalcitonin level. Sputum C and S. Continue broad antibiotic coverage. May consider further arterial workup. ��������������������������������������������� <ELECTRONICALLY SIGNED> ���������������������������������������� By: Aleksandr Romero MD ��������������������������������������������� 09/08/18 1635 [id number] Aleksandr Romero MD /nt
--- NOTE | 2018-09-08 19:35 | NUR ---
1730 PT BACK FROM COAL PULVERIZING OPERATOR, RESP RATE 41, PT SOUNDS COARSE, POSSIBLE MUCOUS PLUG, SONDRA CALLED FOR NTS ORDERS. RESPIRATORY PAGED TO PLACE HIGH FLOW CANNULA FIO2 65% AND 34L. 1745 PT RESP RATE IMPROVED 24BPM, NTS SMALL AMOUNT OF MUCOUS REMOVED, ORAL PALATE SCRUBBED AND MOSTURIZED, LARGE DRY CRUSTY PATCH REMOVED FROM TONGUE AND HARD PALATE. PT IN LESS DISTRESS WHILE ON CANNULA.
[2018-09-09] VITALS (20 sets, daily range): BP systolic 108–132; BP diastolic 56–73
--- NOTE | 2018-09-09 03:08 | NUR ---
PT HAD STENTS PLACED IN LEFT LEG YESTERDAY. COMPARED TO THE PRIOR NIGHT, PT HAS MORE MOVEMENT AND FEELING IN THAT LEG. THE COLOR OF HIS FOOT HAS IMPROVED SOME, BUT IT REMAINS COOL. IT WAS DIFFICULT TO DOPPLE A PULSE EARLIER IN THE NIGHT. NOW ABLE TO FIND A WEAK PULSE WITH DOPPLER, BUT STILL NOT PALAPABLE. OG TUBE REMOVED AFTER RETURNING FROM CHEF KITCHEN MANAGER, SINCE IT HAD BEEN PULLED OUT SLIGHTLY. MANNY PLACED AND VERIFIED BY KUB. PLAVIX AND ASPIRIN GIVEN BY TUBE. WILL START TUBE FEEDINGS AGAIN AT A SLOW RATE. PT REMAINS ON PRECEDEX GTT FOR SEDATION. PT HAS BEEN RESPONSIVE AND ABLE TO FOLLOW COMMANDS, BUT HAS NOT BECOME AGITATED. PT ON OPTIFLOW AND O2 SATS HAVE BEEN GREATER THAN 94%, PT DOES NOT APPEAR TO BE IN ANY RESPIRATORY DISTRESS. WILL CONTINUE TO MONITOR CLOSELY.
[2018-09-09 05:23] LABS: HEMATOCRIT 33.2 % (42.0-52.0); HEMOGLOBIN 11.2 gm/dL (14.0-18.0); MCH 31.7 pg (26.0-34.0); MCHC 33.8 g/dL (28.0-37.0); MCV 93.6 fL (80.0-100.0); RBC 3.54 mil/uL (4.50-6.00); RDW 12.7 % (10.5-14.5); WBC 12.1 thou/uL (4.0-11.0)
[2018-09-09 05:29] LABS: CREATININE 0.9 mg/dL (0.7-1.3); MAGNESIUM 2.7 mg/dL (1.8-2.4); POTASSIUM 3.4 mmol/L (3.5-5.1)
[2018-09-09 17:36] LABS: BE(vivo) 2.6 mmol/L (-2 to +3); HCO3 25.4 mmol/L (22.0-26.0); PCO2 33.3 mmHg (35.0-45.0); PO2 73.7 mmHg (80.0-100.0)
--- NOTE | 2018-09-09 17:54 | NUR ---
PATIENT CONT ON PRECEDEX AND AT 0.3 HE IS TOLERING WELL. HE IS EASILY AROUSABLE, FOLLOWS COMMANDS. PRECEDEX HAD BEEN REDUCED O 0.2 THIS AM BU HE DID NOT TOLERATE WELL. HE WAS NOTED GRAPPING DOBHUFF, ALSO TRYING TO CLIMB OUT BED. DOSE WAS THEN ADJUSTED TO 0.3. TUBE FEEDING INCREASED TO 30 AND SUGGEST NIGHT INCREASE TO 40 WHICH IS GOAL. HE IS TOLERING SO FAR. WILL CONT WITH PLAN OF CARE.
[2018-09-10] VITALS (17 sets, daily range): BP systolic 106–165; BP diastolic 49–122
[2018-09-10 05:52] LABS: HEMATOCRIT 32.1 % (42.0-52.0); HEMOGLOBIN 10.9 gm/dL (14.0-18.0); MCH 31.5 pg (26.0-34.0); MCHC 33.9 g/dL (28.0-37.0); MCV 93.2 fL (80.0-100.0); RBC 3.44 mil/uL (4.50-6.00); WBC 15.3 thou/uL (4.0-11.0)
[2018-09-10 06:01] LABS: CALCIUM 7.5 mg/dL (8.5-10.1); MAGNESIUM 2.4 mg/dL (1.8-2.4); POTASSIUM 3.4 mmol/L (3.5-5.1)
--- NOTE | 2018-09-10 07:45 | NUR ---
PT ON OPTIFLOW O2 DEVICE. PT TOLERATES WELL, WITH O2 SAT CONSISTENTLY >96%. PT'S COUGH IS SOMEWHAT STRONGER, BUT PT IS STILL UNABLE TO CLEAR SECRETIONS. PT HAS BEEN MORE ALERT TONIGHT, BUT PT IS CONFUSED AND CAN SOMETIMES BECOME SOMEWHAT AGITATED. REMAINS ON PRECEDEX GTT TO HELP WITH PT'S AGITATION AND KEEP HIM CALM. VANC TROUGH DRAWN LAST NIGHT BEFORE DOSE GIVEN; TROUGH WAS LOW. WILL CONTINUE TO MONITOR.
--- NOTE | 2018-09-10 16:16 | NUR ---
PT OFF PRECEDEX, VERBALLY AGRESSIVE AT TIMES, TOLD NURSE TO GO TO HELL, RAISED FIST AT NURSE TO SWING. BP SLIGHLTY EVEVATED, LAMOGLIA ORDERS TO GIVE IVP BP MEDS. REMAINS ON HIGH FLOW NASAL CANNULA, TUBE FEEDING AT GOAL TOLERATING WELL, WILL CONTINUE TO MONITOR.
[2018-09-11] VITALS (23 sets, daily range): BP systolic 137–162; BP diastolic 66–92
--- NOTE | 2018-09-11 05:15 | NUR ---
PT RESTING COMFORTABLE IN BED. REMAINS ON OPTIFLOW 28L FIO2 45% SATS 100% PT CONTINUES WITH TUBE FEED AND TOLERATING. AFEBRILE AND VSS. PT HAS HAD NO COMPLAINTS OF PAIN DURING MY SHIFT. AM LABS TO BE DRAWN AND REVIEWED.
[2018-09-11 05:35] LABS: HEMOGLOBIN 12.3 gm/dL (14.0-18.0); MCH 31.3 pg (26.0-34.0); MCHC 33.2 g/dL (28.0-37.0); MCV 94.3 fL (80.0-100.0); RBC 3.93 mil/uL (4.50-6.00); RDW 13.2 % (10.5-14.5); WBC 23.8 thou/uL (4.0-11.0)
[2018-09-11 05:47] LABS: MAGNESIUM 2.2 mg/dL (1.8-2.4); POTASSIUM 3.2 mmol/L (3.5-5.1)
--- NOTE | 2018-09-11 18:34 | NUR ---
OPTIFLOW TITRATED TO 35%. PT TOLERATING WELL. PT A/O X 1, CONFUSED AND DIFFICULT TO UNDERSTAND. ST ABHINAVAL HELD D/T HIGH O2 DEMAND PER DR JARQUIN. CDIFF SAMPLE SENT TO LAB. FMS AND ALARCON REMAIN IN PLACE. PT/OT WORKED WITH PT AND GOT TO EDGE OF BED WITH MAX ASSIST. FREQUENT ORAL CARE GIVEN. SLOW PROGRESSION TOWARD POC GOALS
[2018-09-12] VITALS (24 sets, daily range): BP systolic 131–161; BP diastolic 61–83
--- NOTE | 2018-09-12 05:06 | NUR ---
ASSUMED CARE OF PATIENT AT 1900. VSS, AFEBRILE. DOBHOFF BECAME CLOGGED, UNSUCCESSFUL UNCLOGGING IT. DYE TUB OPERATOR NOTIFIED, TELEPHONE ORDER TO HOLD TUBE FEED UNTIL AM. TURNED Q2, BATH GIVEN. NO S/S OF DISTRESS. PROGRESSING WELL TOWARDS POC GOALS.
[2018-09-12 05:49] LABS: HEMATOCRIT 33.3 % (42.0-52.0); HEMOGLOBIN 11.1 gm/dL (14.0-18.0); MCH 31.4 pg (26.0-34.0); MCHC 33.3 g/dL (28.0-37.0); MCV 94.1 fL (80.0-100.0); RBC 3.54 mil/uL (4.50-6.00); RDW 12.8 % (10.5-14.5); WBC 19.8 thou/uL (4.0-11.0)
[2018-09-12 05:59] LABS: CALCIUM 7.7 mg/dL (8.5-10.1); POTASSIUM 3.3 mmol/L (3.5-5.1)
--- NOTE | 2018-09-12 09:08 | NUR ---
Recommend change tube feed formula to vital HN 1.2 goal 65ml/hr. May need to increase water flushes to 300ml every 6 hrs if Na level not improved.
--- NOTE | 2018-09-12 13:56 | NUR ---
Patient admits from [facility], he cont on IV antibiotics, ng tube and rectal tube. Patient may be a candidate for LTAC. Sp with brother and reviewed LTAC and criteria. Brother in agreement. he reports he lives in [place] and interested in [facility]. Referral faxed for review will update brother.
--- NOTE | 2018-09-12 14:54 | NUR ---
FAXED REFERRAL TO [facility] SPOKE WITH CLAUDINE IN ADM. SHE RECEIVED REFERRAL AND WILL REVIEW. DCP TO FOLLOW.
--- NOTE | 2018-09-12 16:46 | NUR ---
OPENS EYES TO VERBAL STIMULI AND MUMBLES, UNABLE TO UNDERSTAND. ORAL CARE COMPLETED EVERY 2 HOURS. DOBHOFF INADVERTENLY PULLED OUT WHILE PATIET WAS WORKING WITH OT. REPLACED DOBHOFF AND CONFIRMED PLACEMENT WITH X-RAY. TUBE FEEDING CHANGED TO VITAL HN 1.2 AT 50CC/HR - GOAL RATE IS 65CC/HR. DANGLED AT BEDSIDE WITH OT WITH MAX ASSIST. ALARCON TO DD WITH CLEAR YELLOW URINE. WEANED OFF OPTIFLO AT NOON TO ROOM AIR WITH GOOD O2 SATS. RIGHT IJ TRIPLE LUMEN INTACT AND PATENT. FECAL MANAGEMENT SYSTEM INTACT WITH MODERATE AMT BROWN STOOL. SKIN INTACT. REPOSTIONED EVERY 2 HOURS.
[2018-09-13] VITALS (19 sets, daily range): BP systolic 116–163; BP diastolic 55–110
--- NOTE | 2018-09-13 04:38 | NUR ---
ASSUMED CARE OF PATIENT AT 1900. VSS, AFEBRILE. FMS REMOVED. ONE STOOL SINCE. INCONTINENT OF URINE SEVERAL TIMES. AGITATED AT TIMES, ATTEMPTING TO PULL DOBHOFF OFF. IS ABLE TO BE REDIRECTED. TURNED Q2 WITH FREQUENT ORAL CARE GIVEN. PROGRESSING TOWARDS POC GOALS.
[2018-09-13 06:15] LABS: CALCIUM 7.8 mg/dL (8.5-10.1); POTASSIUM 3.5 mmol/L (3.5-5.1)
--- NOTE | 2018-09-13 12:13 | NUR ---
VIDEO SWALLOW COMPLETED. PUREED HONEY THICK DIET STARTED. MEDS GIVEN PO WITH APPLESAUCE. SSI AND ACCUCHECKS D/C'D.
--- NOTE | 2018-09-13 14:02 | NUR ---
FOLLOWING FOR DC PLANNING. CLINICAL INFO REVIEWED. PER JEANETH AT [facility], PT DOES NOT MEET LTACH CRITERIA SO DECLINES. PT PULLED OUT DOBHOFF LAST NIGHT AND WENT FOR VIDEO SWALLOW THIS AM AND NOW HAS PUREED DIET WITH HONEY THICK LIQUIDS. DISCUSSED WITH DR. COSTELLO AND PLANNING LIKELY DC TO SKILLED REHAB AT HIS LTC FACILITY [facility] FOR 09/14/18. UPDATE TO MISTY IN ADMISSIONS AT FACILITY AND THEY ARE ABLE TO ACCEPT WHEN PT READY. CALLED PT'S BROTHER/DPOA JAMEY-LEFT WITH UPDATED DC PLAN AND CM CONTACT # FOR ANY QUESTIONS. REQUESTED DC DIGITAL ACCOUNT COORDINATOR FAX CLINICAL UPDATES TO FACILITY.
--- NOTE | 2018-09-13 14:40 | NUR ---
DCP FAXED CLINICAL UPDATE PT/OT NOTES INCLUDED TO [facility] SPOKE WITH NICK IN ADM. THAT PT. IS NOW GOING TO BE SKILLED AT DC. DCP TO FOLLOW.
--- NOTE | 2018-09-13 15:20 | NUR ---
PT NOW M/S TELE STATUS, AWAITING BED. PT REMAINS ON ROOM AIR, COARSE LUNG SOUNDS. REQUIRES A LOT OF ENCOURAGEMENT WITH EATING. TOOK A LOT OF TIME TO ALLOW CHIN TUCK SAFE SWALLOW.
--- NOTE | 2018-09-13 16:25 | NUR ---
DCP FAXED CLINICAL UPDATE TO [facility] LEFT MSG WITH NICK IN ADM. THAT UPDATE FAXED. DCP TO FOLLOW.
--- NOTE | 2018-09-13 18:02 | NUR ---
PT TRANSFERRING TO ROOM 363. REPORT CALLED TO SALAZAR TIMMONS. MESSAGE LEFT ON ANS SERVICE TO NOTIFY BROTHER JAMEY OF ROOM MOVE.
[2018-09-14] VITALS: BP 141/65
--- NOTE | 2018-09-14 03:55 | NUR ---
PT RESTING ON AND OFF THRU THE NOC, NO C/O PAIN, VSS, REPOSITIONED NEEDED, INCON'T X3, PLACED BACK ON 2L/NC BY RT WHEN RM AIR SAT FOUND AT 89%, WILL CON'T TO MONITOR PER PPOC.
[2018-09-14 04:51] VITALS: BP 128/76
[2018-09-14 05:13] LABS: HEMATOCRIT 31.1 % (42.0-52.0); HEMOGLOBIN 10.5 gm/dL (14.0-18.0); MCH 31.7 pg (26.0-34.0); MCHC 33.8 g/dL (28.0-37.0); MCV 93.7 fL (80.0-100.0); RBC 3.32 mil/uL (4.50-6.00); RDW 12.9 % (10.5-14.5); WBC 11.1 thou/uL (4.0-11.0)
[2018-09-14 05:27] LABS: CALCIUM 7.8 mg/dL (8.5-10.1); POTASSIUM 3.2 mmol/L (3.5-5.1)
[2018-09-14 08:03] VITALS: BP 151/90
[2018-09-14] MEDS ORDERED: CLOPIDOGREL75 MG PER TUBE (14:32)
[2018-09-14] MEDS ORDERED: PACERONE 200 M200 M1 PO (14:32)
[2018-09-14] MEDS ORDERED: COREG6.25 MG PO (14:33)
[2018-09-14] MEDS ORDERED: ASPIRIN325 PER TUBE (14:33)
[2018-09-14] MEDS ORDERED: CYMBALTA20 MG PO (14:38)
[2018-09-14] MEDS ORDERED: PREDNISONE 10 M10 MG PO (14:39)
[2018-09-14] MEDS ORDERED: AUGMENTIN 875-1 EACH PO (14:39)
[2018-09-14] MEDS ORDERED: DEPAKOTE SPRIN125 MG PO (14:43)
[2018-09-14 15:15] VITALS: BP 139/89
--- NOTE | 2018-09-14 15:22 | NUR ---
DISCHARGE PLANNING. PATIENT DISCHARGING TO [facility] THIS AFTERNOON. CHART COPIED PER TOP STOP ATTACHER. ORDERS FAXED TO [facility] ADMISSIONS LIAISON, VERIFIED RECEIVED. [facility] TO TRANSPORT PATIENT VIA [facility], 1630 HOURS. BROTHER NOTIFIED OF DC PLAN AND TRANSPORTATION TIME. UNIT CM/SW AWARE.
--- NOTE | 2018-09-14 15:31 | NUR ---
DISCHARGE NOTE: SW reviewed chart and spoke with nursing and attending physician. Pt transferred to 3W from ICU and is medically stable for discharge back to [facility] SNF today. process planner coordinated and notified family. No further SW needs identified at this time, but is available to assist should needs arise.
--- NOTE | 2018-09-14 15:56 | NUR ---
Assumed care of patient at 0700. Vitals have been stable. Patient is alert and oriented to self, otherwise pleasantly confused. Able to follow simple commands. Denies pain. Maintaining oxygen saturations on 2L NC. Remains on pureed, honey thick diet. Able to take PO meds fine, crushed in pureed. Poor appetite, but does well with verbal cues, tucking chin, multiple swallows, etc. Repositioning every couple hours. Incontinent of bowel and bladder. Condom catheter placed. Discharge orders received. Attempted to call report at 1600, phone rang to voicemail and message left with callback number. Belongings gathered. Will continue to monitor until discharge.
[2018-09-14 16:09] VITALS: BP 139/89
--- NOTE | 2018-09-14 18:25 | NUR ---
ASSUMED CARE OF PATIENT AT 0700. VSS. A&0 TO SELF, CONFUSED, BUT ABLE TO FOLLOW SIMPLE COMMANDS AND RESPOND WITH SHORT SENTENCES. REMAINS ON HONEY THICK PUREED DIET. PO MEDS CRUSHED AND GIVEN WITH APPLESAUCE; TOLERATES WELL. NO COMPLAINTS OF PAIN. LUNG SOUNDS COARSE AND COUGH EFFORT WEAK. O2 SATS MAINTAINED ON 2L NC. CONDOM CATHETER APPLIED R/T INCONTINENCE. PLAN TO DISCHARGE TO [facility] THIS AFTERNOON. RIGHT IJ CENTRAL LINE DISCONTINUED; PRESSURE HELD FOR 5 MIN AND TRANSPARENT DRESSING APPLIED. PATIENT PICKED UP AND TRANSPORTED AT 1640 WITH BELONGINGS.
== END 2018-09-14 18:49 | DRG 853 ==
LOC: ER 23:01 → EROBS 09-01 00:18 → ICU 09-01 00:18 → 3W 09-13 18:49
PROVIDERS: Emergency Medicine; Hospitalist; Internal Medicine; Internal Medicine Pulmonary Disease; Nurse Practitioner Family; Specialist; ADMIT Hospitalist
DX: A41.9 Sepsis, unspecified organism (principal); R65.21 Severe sepsis with septic shock; J96.01 Acute respiratory failure with hypoxia; J96.02 Acute respiratory failure with hypercapnia; K72.00 Acute and subacute hepatic failure without coma; I21.4 Non-ST elevation (NSTEMI) myocardial infarction; J18.9 Pneumonia, unspecified organism; N17.9 Acute kidney failure, unspecified; I48.92 Unspecified atrial flutter; G93.40 Encephalopathy, unspecified; J98.11 Atelectasis; J44.0 Chronic obstructive pulmonary disease with (acute) lower respiratory infection; F03.90 Unspecified dementia, unspecified severity, without behavioral disturbance, psychotic disturbance, mood disturbance, and anxiety; E78.5 Hyperlipidemia, unspecified; I50.9 Heart failure, unspecified; I95.9 Hypotension, unspecified; I11.0 Hypertensive heart disease with heart failure; F10.20 Alcohol dependence, uncomplicated; I25.5 Ischemic cardiomyopathy; I73.9 Peripheral vascular disease, unspecified; E87.6 Hypokalemia; R41.0 Disorientation, unspecified; Z66 Do not resuscitate; K21.9 Gastro-esophageal reflux disease without esophagitis; I48.91 Unspecified atrial fibrillation; F32.9 Major depressive disorder, single episode, unspecified; Z87.891 Personal history of nicotine dependence; Z79.82 Long term (current) use of aspirin; Z79.899 Other long term (current) drug therapy
CPT/HCPCS: 10078; 10879

== ENCOUNTER 2019-12-12 12:01 | Inpatient (IN) | payer OTHER ==
[~2019-12-12] VITALS: Ht 172.7 cm; Wt 64.0 kg
[~2019-12-12 12:01] MED LIST: ASPIRIN325 PER TUBE; AUGMENTIN 875-1 EACH PO; CLARITIN10 MG PO; CLOPIDOGREL75 MG PER TUBE; COLACE 100 MG100 MG PO; COREG6.25 MG PO; CYMBALTA20 MG PO; CYMBALTA60 MG PO; DEPAKOTE SPRIN125 MG PO; IPRAT-ALBUT 0.5-3 ML INH; LIPITOR 10 MG10 M1 PO; LISINOPRIL10 MG PO; LOPRESSOR25 PO; MELATONIN3 MG PO; NITROGLYCERIN0.4 MG SUBLING; NORCO 7.5-3251 EACH PO; PACERONE 200 M200 M1 PO; PREDNISONE 10 M10 MG PO; VENTOLIN HFA 1818 GM INH; [UNRECOGNIZED DRUG - OTHER] TOP
[2019-12-12 12:05] VITALS: BP 121/68
[2019-12-12] MEDS ORDERED: ACETAMINOPHEN650 M5 PO (12:15)
[2019-12-12] MEDS ORDERED: DULOXETINE HCL20 MG PO (12:15)
[2019-12-12 12:42] LABS: ABSOLUTE NEUTROPHILS 13.4 thou/uL (1.4-8.2); BASOPHILS 0.2 % (0.0-2.0); EOSINOPHILS 0.1 % (0.0-3.0); HEMOGLOBIN 15.2 gm/dL (14.0-18.0); LYMPHOCYTES 10.7 % (24.0-44.0); MCH 32.3 pg (26.0-34.0); MCHC 33.7 g/dL (28.0-37.0); MCV 95.8 fL (80.0-100.0); MONOCYTES 5.1 % (1.0-8.0); PLATELET COUNT 197 thou/uL (150-400); POLYS 83.9 % (36.0-66.0); RDW 13.2 % (10.5-14.5); WBC 15.9 thou/uL (4.0-11.0)
[2019-12-12 12:47] LABS: CALCIUM 9.1 mg/dL (8.5-10.1); CREATININE 1.5 mg/dL (0.7-1.3); POTASSIUM 4.6 mmol/L (3.5-5.1)
[2019-12-12 12:53] LABS: ALBUMIN 3.3 g/dL (3.4-5.0); DIRECT BILIRUBIN 0.1 mg/dL (<0.1-0.2); TOTAL PROTEIN 6.7 g/dL (6.4-8.2)
[2019-12-12 13:13] LABS: URINE BILIRUBIN NEGATIVE (Negative); URINE BLOOD NEGATIVE (Negative); URINE CLARITY SL CLOUDY; URINE COLOR YELLOW; URINE GLUCOSE-RANDOM* NEGATIVE (Negative); URINE KETONES NEGATIVE (Negative); URINE LEUKOCYTES-REFLEX 3+ (Negative); URINE NITRITE-REFLEX NEGATIVE (Negative); URINE PROTEIN (DIPSTICK) NEGATIVE (Negative); URINE SPECIFIC GRAVITY <= 1.005 (1.005-1.035); URINE UROBILINOGEN 0.2 E.U./dl (0.2-1.0)
[2019-12-12 13:20] LABS: SQUAMOUS 0-3 Few /LPF (0-3)
[2019-12-12 13:21] LABS: AMORPHOUS URATES Moderate /LPF (None Seen); BACTERIA-REFLEX 1-9 Few /HPF (None Seen); CASTS None Seen /LPF (None Seen); URINE RBC 0-2 Rare /HPF (0-2); URINE WBC-REFLEX 6-15 Few /HPF (0-5)
--- NOTE | 2019-12-12 14:54 | NUR ---
SPOKE WITH KARIME FROM [facility] AND UPDATED HER ON PT POC
--- NOTE | 2019-12-12 15:01 | NUR ---
PT HAS AMS. UNSURE WHAT PHARMACY HE USES. PT CURRENTLY AT [facility]
[2019-12-12 16:11] VITALS: BP 121/71
[2019-12-12 16:50] VITALS: BP 115/70
[2019-12-12 17:19] VITALS: BP 115/61
--- NOTE | 2019-12-12 18:38 | NUR ---
1730 PT ADMITTED ON 3W, 361, PT ALERT AND ORIENTED TO SELF. PT CONFUSED BUT ABLE TO FOLLOW COMMADS. TELEMETRY PLACED ON PT, PT IS IN SINUS RYTHM. OXYGEN SATURATION WAS IN THE 80'S, PT PT ON 2L OF OXYGEN,PT IS NOW SATING IN THE LOW 90'S. LUNGS DIMINISHED AND COARSE IN BASES. PT IS ON FALL RISK, AND HAS YELLOW SOCKS WITH BED ALARM ON. PT UNABLE TO SIGNED FOR CONSENTS. REPORT GIVEN TO POULTRY SEXER NURSE TO CALL CALL DPOA FOR VERBAL CONSENT. CALL LIGHT AND TABLE IN REACH, BED AT LOWEST LEVEL WITH ALARM ON.
[2019-12-12 20:12] VITALS: BP 109/64
[2019-12-13] VITALS (60 sets, daily range): BP systolic 88–148; BP diastolic 42–72
--- NOTE | 2019-12-13 05:29 | NUR ---
CRITICAL LAB FROM RADIOLOGY. PAOLO CALLED AND STATED PT CHEST XRAY SHOWS PNEUMOTHORAX. CONSULT TO PULMONARY. PT TO BE MOVED TO ICU, SCHEDULE A BRONCH, PT TO BE PLACED ON BIPAP, AND ABG'S.
--- NOTE | 2019-12-13 05:46 | NUR ---
ASSUMED CARE AT 1900, ASSESSMENT COMPLETED. PT INTIALLY SLEEPING, BUT WOKE UP AND PULLING AT LINES. PULLED IV OUT TWICE OVERNIGHT. REPLACED TWICE, FLUIDS AND ABX INFUSING. KEPT TAKING O2 OFF, WOULD NOT LEAVE NC ALONE AND SATS FELL TO 80% ON RA; WITH O2 ON HE RECOVERED QUICKLY TO UPPER 90'S. PLACED ON SIMPLE FACE MASK AT 6L; HE TOLERATED THIS BETTER, ALTHOUGHT PULLED IT DOWN FREQUENTLY; LONG MASK WAS AT LEAST PARTLY ON FACE, SATS STAYED AT 95% OR BETTER. ABOUT 0400, PT HAD MUCH MORE NOTICEABLE CONGESTION IN HIS THROAT; AT INITIAL ASSESSMENT LUNGS WERE COARSE BUT VERY CLEAR, NOW THEY WERE GREATLY DIMINISHED. OBTAINED STAT CXR WHICH SHOWED POSSIBLE TOTAL LEFT PNEUMOTHORAX. NOTIFIED SCUBA DIVING TEACHER BALANCE WHEEL SCREW HOLE DRILLER AND THEN PLACED STAT CONSULT TO DR. JARQUIN. OBTAINED ORDERS FOR ICU TRANSFER, ABG, NONCONTRAST CT CHEST, BRONCH, BIPAP, AND KEEP PT NPO. HE HAS BEEN NPO ALL NIGHT D/T NEED FOR SPEECH EVAL FOR POSSIBLE ASPIRATION. PLAN TO TRANSFER TO ICU 237.
[2019-12-13 06:03] LABS: HEMATOCRIT 43.2 % (42.0-52.0); HEMOGLOBIN 14.3 gm/dL (14.0-18.0); MCH 32.3 pg (26.0-34.0); MCHC 33.1 g/dL (28.0-37.0); MCV 97.7 fL (80.0-100.0); RBC 4.42 mil/uL (4.50-6.00); RDW 13.2 % (10.5-14.5); WBC 10.3 thou/uL (4.0-11.0)
[2019-12-13 06:30] LABS: ALBUMIN 2.6 g/dL (3.4-5.0); CREATININE 1.2 mg/dL (0.7-1.3); PHOSPHORUS 3.1 mg/dL (2.5-4.9)
[2019-12-13 07:28] LABS: HCO3 23.1 mmol/L (22.0-26.0); PCO2 36.9 mmHg (35.0-45.0); PO2 82.7 mmHg (80.0-100.0); pH 7.415 (7.360-7.450); sO2 96.3 % (92.0-98.0)
--- NOTE | 2019-12-13 08:57 | NUR ---
ASSUMED CARE @ 0700 12/13/19, PT ASSESSMENTS AND VSS COMPLETE PER ICU PROTOCOL AND DOCUMENTED. STAT ABG AQUIRED PER ORDERS @ 7360, DR JARQUIN PAGED @ 6015, NO NEW ORDERS RECIEVED AT THIS TIME. DR JARQUIN ALSO ACKNOWLEDGES THAT HE IS AWARE OF CHEST XRAY RESULTS WITH COLLAPSED LEFT LUNG.
--- NOTE | 2019-12-13 13:10 | NUR ---
INITIAL ASSESSMENT: Received consult. PETER reviewed chart and spoke with attending physician. [facility]I. Pt currently in the ICU and in Enhanced Isolation to r/o COVID-19. Pt's test is negative. Pt to have bronch today at bedside. SW left voice message for pt's brother, Pierre, to provide update and confirm discharge plan to return to [facility] when medically stable. PETER faxed clinical info to facility for review and notified Centers liaison. Update provided. PETER is following to assist as needed with discharge planning.
--- NOTE | 2019-12-13 16:26 | NUR ---
CONSULTED TO PLACE A PICC FOR A PATIENT NEEDING ADDITIONAL IV ACCESS. ORDER AND CONSENT NOTED. A #5F TRIPLE LUMEN POWER PICC WAS PLACED AFTER A BEDSIDE TIMEOUT COMPLETED. THE PICC WAS TRIMMED TO 45CM AND ADVANCED WITHOUT DIFFICULTY. A STAT CHEST XRAY WAS COMPLETED FOR CONFIRMATION
[2019-12-13 16:46] LABS: BE(vivo) -0.5 mmol/L (-2 to +3); HCO3 23.3 mmol/L (22.0-26.0); PCO2 35.6 mmHg (35.0-45.0); PO2 111.7 mmHg (80.0-100.0); pH 7.433 (7.360-7.450); sO2 98.2 % (92.0-98.0)
--- NOTE | 2019-12-13 19:22 | NUR ---
2nd cxr confirmed PICC at [facility], released for immediate use per protocol to kika LINCOLN
[2019-12-14] VITALS (38 sets, daily range): BP systolic 93–141; BP diastolic 48–78
[2019-12-14 05:20] LABS: HEMATOCRIT 39.2 % (42.0-52.0); HEMOGLOBIN 12.9 gm/dL (14.0-18.0); MCH 32.4 pg (26.0-34.0); MCHC 32.9 g/dL (28.0-37.0); MCV 98.6 fL (80.0-100.0); RBC 3.98 mil/uL (4.50-6.00); RDW 12.9 % (10.5-14.5); WBC 12.5 thou/uL (4.0-11.0)
[2019-12-14 05:50] LABS: ALBUMIN 2.2 g/dL (3.4-5.0); CALCIUM 7.8 mg/dL (8.5-10.1); POTASSIUM 3.3 mmol/L (3.5-5.1); TOTAL BILIRUBIN 0.6 mg/dL (0.2-1.0); TOTAL PROTEIN 5.7 g/dL (6.4-8.2)
--- NOTE | 2019-12-14 06:29 | NUR ---
Pt very lethargic at beginning of shift but has become more responsive throughout shift. Initially did not respond verbally to questions, but now has clear speech, though very confused (which is apprarently his baseline). Pt sleeps when left alone but arouses easily to verbal stimuli or light touch. Pt has repeatedly taken opti-flow canula out of his nose, states he does not like it. Room air sat 94%, but warm humidified air needed to thin pt secretions. Pt has weak, very congested cough. Breath sounds remain diminished, occasionally coarse upper lobes. Urine output marginal at 300 cc for this shift. Pt remains NPO. Speech eval scheduled for today. Monitor remains sinus rhythm with BBB.
--- NOTE | 2019-12-14 13:40 | NUR ---
SW reviewed chart and spoke with attending physician. Pt remains in ICU. Pt had bronch yesterday. ST evaluated pt earlier today. Pt to remain NPO. Video swallow study to be ordered. No weekend discharge planned. PETER updated [facility] liaison. PETER is following to assist as needed with discharge planning.
--- NOTE | 2019-12-14 15:08 | PATH ---
[facility] [address] [place] [address] PATHOLOGY RPT PROCEDURE Name: ANGELICA PARIS Room #: 237-P ADM IN M.R.#: [id number] Admission: 12/12/19 Date of : 54 Discharge: Report #: [id number] Path Case #: [id number] Note [facility] Accession Number: [id number] TESTS RESULT FLAG UNITS REF RANGE LAB Clinician Provided Cytology Information No. of containers..01 Other (Miscellaneous) Source: BRONCH WASH LLL DIAGNOSIS: 02 BRONCH WASH LLL NEGATIVE FOR MALIGNANT CELLS. REACTIVE BRONCHIAL CELLS ARE PRESENT. PULMONARY MACROPHAGES PRESENT, INDICATIVE OF LOWER RESPIRATORY TRACT SAMPLING. MARKED ACUTE INFLAMMATION PRESENT. ABUNDANT SUPERFICIAL SQUAMOUS EPITHELIAL CELLS, FAVOR ORAL CONTAMINATION. Pathologist ICD10: 02 R53.1 Signed out by: 02 Courtney Arenas MD, Pathologist NPI- [id number] Performed by: Debbie Dumont, Airway Controller ([facility]) Gross description: 01 20ML, MILKY PINK, 1 TP /LCS 12/13/2019 1622 Local FLAG LEGEND: L-Low Normal,H-High Normal,LL-Alert Low,HH-Alert High <-Panic Low,>-Panic High,A-Abnormal,AA-Critical Abnormal Performed at: [address] [facility] [address] [place] [address] Trey Palmer MD, [address] [address] Courtney Arenas MD, Specimen Comment: A courtesy copy of this report has been sent to [phone], [phone] Specimen Comment: [phone], Specimen Comment: Report sent to Performed at: [address], [place], [place] [id number] [address] [address] PATHOLOGY RPT PROCEDURE Name: ANGELICA PARIS Room #: 237-P ADM IN M.R.#: [id number] Admission: 12/12/19 Date of : 54 Discharge: Report #: [id number] Path Case #: [id number] MD Trey Palmer MD Phone: [phone]
--- NOTE | 2019-12-14 16:52 | NUR ---
AFEBRILE TODAY, SPECIAL ISOLATION FOR COVID 19 DC'D. CONTINUES TO HAVE A HARD TIME WITH SECRETIONS. SCOPALAMINE PATCH PLACED BEHIND R EAR. MODERATE COUGH EFFORT BUT NOT ALWAYS EFFECTIVE. SPEECH EVAL COMPLETED TODAY AND RECCOMEND TO CRUSH MEDS AND GIVE WITH PUDDING AND NOT FEED AT THIS TIME. PLEASANTLY CONFUSED BUT COOPERATIVE.
[2019-12-15] VITALS (25 sets, daily range): BP systolic 105–146; BP diastolic 47–83
[2019-12-15 04:40] LABS: ABSOLUTE NEUTROPHILS 10.3 thou/uL (1.4-8.2); BASOPHILS 0.1 % (0.0-2.0); HEMATOCRIT 32.6 % (42.0-52.0); HEMOGLOBIN 11.1 gm/dL (14.0-18.0); LYMPHOCYTES 3.7 % (24.0-44.0); MCH 33.1 pg (26.0-34.0); MCHC 33.9 g/dL (28.0-37.0); MCV 97.7 fL (80.0-100.0); MONOCYTES 3.7 % (1.0-8.0); PLATELET COUNT 154 thou/uL (150-400); POLYS 92.5 % (36.0-66.0); RBC 3.34 mil/uL (4.50-6.00); RDW 13.3 % (10.5-14.5); WBC 11.2 thou/uL (4.0-11.0)
[2019-12-15 04:57] LABS: PHOSPHORUS 2.2 mg/dL (2.5-4.9); POTASSIUM 3.2 mmol/L (3.5-5.1)
--- NOTE | 2019-12-15 07:23 | NUR ---
PATIENT ALERT TO SELF ONLY, CONFUSED TO DATE AND SITUATION. IMPULSIVE AT TIMES. SINUS RHYTHM ON FIBERGLASS FINISHER. PATIENT CONTINUOUSLY PULLED OFF OXYGEN THROUGHOUT THE NIGHT, RESPIRATORY THERAPY TRIED VARIOUS FACE MASKS AND YIELDED UNSUCCESSFUL RESULTS. RESTRAINTS PRESENT, RANG OF MOTION EXERCISES DONE. ALARCON PATENT WITH GREATER THAN 30ML/HR. PATIENT SLOWLY PROGRESSING TOWARDS GOALS. NO SIGN OF ACUTE DISTRESS NOTED AT THIS TIME. WILL CONTINUE TO MONITOR.
--- NOTE | 2019-12-15 16:58 | NUR ---
PT KNOWS HIS NAME, BUT PT IS CONFUSED OR IMPULSIVE AT TIME, PT IS ON BILATERAL WRIST SOFT RESTRAINTS, PT CAN FOLLOW SOME COMMANDS, PT IS CONTINUING IV ABX AND PT HAS STARTED PPN @ 80ML/HR , PT STILL HAS LOTS OT COUGHING , PT IS ON ROOM AIR , PT'S VS AND O2SAT ARE STABLE, PT DOES NOT HAVE SOB AND PAIN AT THIS TIME, PT'S BROTHER HAS VISITING HIM TODAY, PT HAS LOW POTASSIUM REPLACEMENT BY IV . PT WILL REANSFER TO M/S UNIT WHEN BED IS AVAILABLE .
[2019-12-16] VITALS (12 sets, daily range): BP systolic 112–143; BP diastolic 53–82
--- NOTE | 2019-12-16 02:13 | NUR ---
PATIENT PLACED ON COMFORT CARE SHORTLY AFTER SHIFT CHANGE. PATIENTS BROTHER CONTACTED AND INFORMED. PATIENT PROVIDED WITH MEDICATION FOR AIR HUNGER AND AGITATION. NURSE TO CONTINUE USE OF RESTRAINTS FOR TIME BEING WITH PLAN TO DC WHEN APPROPRIATE. PATIENT IS STILL CONFUSED AND IMPULSIVE WITH ATTEMPTS TO PULL OUT MEDICAL EQUIPMENT AND CLIMB OUT OF BED.
--- NOTE | 2019-12-16 06:19 | NUR ---
ASSUMED PATIENT CARE AT 1845. PATIENT PLACED ON COMFORT CARE EARLY IN SHIFT. ORIENTED TO SELF, PATIENT IS CONFUSED, IMPULSIVE, AND AGITATED AT TIMES. OXYGEN AND MEDICATIONS PROVIDED FOR COMFORT. PATIENT HAS BEEN SLEEPING SINCE AROUND MIDNIGHT. VITAL SIGNS CURRENTLY STABLE.
--- NOTE | 2019-12-16 17:18 | NUR ---
REPORT WAS GIVEN TO SALAZAR ROGERS AND PT WAS TRANSFERRED TO [place] [id number] VIA BED. ALL BELONGINGS SENT WITH PT. LEFT MESSAGE WITH PT BROTHER ABOUT TRANSFER.
--- NOTE | 2019-12-16 18:49 | NUR ---
TO UNIT BY BED FROM ICU 237 AT 1700. VERY COARSE LUNG SOUNDS. UNRESPONSIVE TO ORAL COMMANDS. COMFORT CARE. FALL PRECAUTIONS IN PLACE.
[2019-12-17 00:23] VITALS: BP 143/82
--- NOTE | 2019-12-17 03:08 | NUR ---
CARE ASSUMED AT 1900 PATIENT WAS SOA AND O2 SATS DROPPING TO <80%. CALLED STRAPPER NEW ORDER OF BREATHING TX. PATIENT WAS COARSE. BROTHER (JAMEY) UPDATED ON PATIENTS AT AROUND 2307. PATIENT WAS GIVEN MORPHINE X2 FOR AIR HUNGER BUT WAS NOT EFFECTIVE. PATIENT AT 0023. ANNOUCED BY 2 RNS.FAMILY,AT AROUND 0045. AND CHANNEL LIP STIFFENER INSOLES AT AROUND 0025. 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 FAMILY WANT FAMILY YO BE TAKEN TO [facility] [phone].BODY WAS PICKED UP BY SECURITY AT AROUND 0230 WITH HIS PERSONAL BELONGINGS.
== END 2019-12-17 00:23 | DRG 163 ==
LOC: ER 12:01 → ICU 15:08 → 3W 15:08 → EROBS 15:08 → ICU 16:50 → 3W 18:28 → ICU 12-13 06:37 → 4W 12-16 17:10
PROVIDERS: Emergency Medicine; Nurse Practitioner Family; ADMIT Hospitalist; ATTEND Hospitalist
DX: T17.890A Other foreign object in other parts of respiratory tract causing asphyxiation, initial encounter (principal); J69.0 Pneumonitis due to inhalation of food and vomit; J96.00 Acute respiratory failure, unspecified whether with hypoxia or hypercapnia; N17.0 Acute kidney failure with tubular necrosis; R65.11 Systemic inflammatory response syndrome (SIRS) of non-infectious origin with acute organ dysfunction; I50.31 Acute diastolic (congestive) heart failure; N39.0 Urinary tract infection, site not specified; J98.11 Atelectasis; F03.90 Unspecified dementia, unspecified severity, without behavioral disturbance, psychotic disturbance, mood disturbance, and anxiety; F32.9 Major depressive disorder, single episode, unspecified; J44.9 Chronic obstructive pulmonary disease, unspecified; E78.5 Hyperlipidemia, unspecified; K21.9 Gastro-esophageal reflux disease without esophagitis; F10.21 Alcohol dependence, in remission; E11.51 Type 2 diabetes mellitus with diabetic peripheral angiopathy without gangrene; I25.5 Ischemic cardiomyopathy; I48.91 Unspecified atrial fibrillation; I11.0 Hypertensive heart disease with heart failure; Z66 Do not resuscitate; X58.XXXA Exposure to other specified factors, initial encounter; Y93.89 Activity, other specified; Y92.89 Other specified places as the place of occurrence of the external cause; Y99.8 Other external cause status; Z79.01 Long term (current) use of anticoagulants; Z79.891 Long term (current) use of opiate analgesic; Z79.899 Other long term (current) drug therapy; Z03.818 Encounter for observation for suspected exposure to other biological agents ruled out
CPT/HCPCS: 10047; 10078; 10779; 10879